=== PATIENT | male | born 1980 | race Caucasian/White ===

== ENCOUNTER 2023-03-21 14:00 | Inpatient (IN) | payer OTHER ==
[2023-03-21] VITALS (7 sets, daily range): BP systolic 134–190
[~2023-03-21] VITALS: Ht 167.6 cm; Wt 144.7 kg
--- NOTE | 2023-03-21 14:03 | NUR ---
Placed in room 01 . Placed on cafeteria monitor, blood pressure machine and pulse oximeter. To gown for exam. Side rails up.
--- NOTE | 2023-03-21 14:03 | NUR ---
PT RECEIVED, CARE ASSUMED. PT BIB EMS FROM HOME FOR EVALUATION OF AMS, HYPOXIA. PLACED PT ON BED 1, CONNECTED TO TELE MONITOR: SR 89, ASSESSMENT DONE: NOTED: GENERAL WEAKNESS TO ALL EXTREMITIES. NO UNILATERAL WEAKNESS NOTED. PT ABLE TO ANSWER BASIC QUESTIONS. MD AT BED SIDE. WILL CONTINUE TO MONITOR
--- NOTE | 2023-03-21 14:03 | NUR ---
1400: Dr Cheney evaluating patient at bedside
--- NOTE | 2023-03-21 14:03 | NUR ---
Pt off the unit for CT
[2023-03-21 14:53] LABS: BILIRUBIN,URINE NEGATIVE (NEGATIVE); BLOOD, URINE 1+ (NEGATIVE); CLARITY/URINE CLEAR (CLEAR); COLOR,URINE YELLOW (YELLOW); GLUCOSE,URINE 1+ (NEGATIVE); KETONES,URINE NEGATIVE (NEGATIVE); LEUKOCYTE ESTERASE ,URINE NEGATIVE (NEGATIVE); NITRITE, URINE NEGATIVE (NEGATIVE); PROTEIN URINE 3+ (NEGATIVE); UROBILINOGEN,URINE 0.2 (0.2-1.0)
[2023-03-21 14:59] LABS: BACTERIA,URINE FEW /HPF (None Seen); MUCUS,URINE None Seen /LPF (None Seen); RBC,URINE 0-3 /HPF (0-3); WBC,URINE 0-3 /HPF (0-3)
[2023-03-21 15:00] LABS: BARBITURATE, URINE NEGATIVE (NEG <=200); BENZODIAZEPINE, URINE NEGATIVE (NEG <=150); CANNABINOID, URINE NEGATIVE (NEG <=50); COCAINE, URINE NEGATIVE (NEG <=150); METHAMPHETAMINES SCREEN,URINE NEGATIVE (NEG <=500); OPIATE, URINE NEGATIVE (NEG <=100); PHENCYCLIDINE SCREEN,URINE NEGATIVE (NEG <=25); UR TRICYCLIC ANTIDEPRESSANTS NEGATIVE (NEG <=300); URINE AMPHETAMINE NEGATIVE (NEG <=500); URINE METHADONE NEGATIVE (NEG <=200); URINE OXYCODONE SCREEN NEGATIVE (NEG <=100); URINE PROPOXYPHENE SCREEN NEGATIVE (NEG <=300)
[2023-03-21 15:10] LABS: MEAN CORPUSCULAR HEMOGLOBIN 32 pg (27-31); MEAN CORPUSCULAR HGB CONC 34 % (32-36); MEAN CORPUSCULAR VOLUME 95 fL (79.0-98.0); PLATELET COUNT (AUTO) 433 K/uL (130-430); RED CELL DISTRIBUTION WIDTH 15.1 % (9.0-15.0); WHITE BLOOD COUNT (AUTO) 10.5 K/uL (4.8-10.8)
[2023-03-21 15:16] LABS: INR 1.1 (0.80-1.20); PROTHROMBIN TIME 11.7 SECS (9.5-12.5)
[2023-03-21 15:24] LABS: HEMATOCRIT 11.4 % (36-54); HEMOGLOBIN 3.9 g/dL (14.0-18.0)
[2023-03-21 15:30] LABS: BAND % (MANUAL) 2 % (0-6); BASOPHILS % (MANUAL) 0 % (0-2); EOSINOPHILS % (MANUAL) 1 % (0-7); LYMPHOCYTES % (MANUAL) 8 % (20-46); MONOCYTES % (MANUAL) 2 % (0-11); MYELOCYTES % 1 % (0-0)
--- NOTE | 2023-03-21 15:30 | NUR ---
ABNORMAL LAB RESULTS CAME IN FROM LAB: HGB 3.9. NO SIGNS OF BLEEDING AT THIS TIME, DR HOBBS AWARE. 4 UNITS OF PRBC ORDERED.
[2023-03-21 15:31] LABS: ALANINE AMINOTRANSFERASE 1371 U/L (12-78); ALBUMIN 2.6 g/dL (3.4-4.8); ANION GAP 17 (5-15); ASPARTATE AMINOTRANSFERASE 542 U/L (10-37); C-REACTIVE PROTEIN QUANT 6.4 mg/dL (0-0.5); CALCIUM 8.2 mg/dL (8.4-11.0); CHLORIDE 92 mmol/L (98-107); GFR AFRICAN AMERICAN 6 mL/min (>90); GLUCOSE 115 mg/dL (70-99); TOTAL BILIRUBIN 0.3 mg/dL (0.0-1.0)
[2023-03-21 15:32] LABS: ACETAMINOPHEN < 1 ug/mL (1-30); ALCOHOL, BLOOD < 3 mg/dL (<10)
[2023-03-21 15:33] LABS: CREATININE 11.52 mg/dL (0.55-1.30); UREA NITROGEN, BLOOD 130 mg/dL (8-21)
[2023-03-21] MEDS ORDERED: DEXTROSE 50% JECT 50 ML DISP.SYRIN IVP ONE (15:45)
[2023-03-21] MEDS ORDERED: INSULIN REGULAR, HUMAN 10 UNITS/0.1 ML, 3 ML VIAL IVP ONE (15:45)
[2023-03-21] MEDS ORDERED: SODIUM POLYSTYRENE SULFONATE 15 GM/60 ML UDBTL PO ONE (15:45)
[2023-03-21 16:03] LABS: ACETONE, SERUM NEGATIVE (NEGATIVE)
--- NOTE | 2023-03-21 16:29 | NUR ---
BLOOD CONSENT SIGNED BY SISTER AND TRANSFUSION FORMS SENT TO LAB
[2023-03-21] MEDS ORDERED: NIFE-34 PO (17:45)
[2023-03-21] MEDS ORDERED: CARV25TA55 PO (17:45)
[2023-03-21] MEDS ORDERED: FURO80TA3 PO (17:45)
[2023-03-21] MEDS ORDERED: CALC0.253 PO (17:45)
[2023-03-21] MEDS ORDERED: CINA60TA2 PO (17:45)
[2023-03-21] MEDS ORDERED: LOSA100T23 PO (17:45)
[2023-03-21] MEDS ORDERED: FERR210T PO (17:45)
[2023-03-21] MEDS ORDERED: FOLI0.8T2 PO (17:47)
[2023-03-21] MEDS ORDERED: SUCR500T PO (17:47)
--- NOTE | 2023-03-21 17:47 | NUR ---
Admit bed requested Patient will be admitted to care of . Admitted to ICU unit. Diagnosis ALTERED MENTAL STATUS/ANEMIA/ RENAL FAILURE Inpatient (Yes or No) Y Observation (Yes or No) N Orientation concerns or request close to nursing station (Yes or No) N Covid Status N On vent or bipap N Isolation requirements N Needs a sitter N From Home (Yes or if No enter name of facility) Y Requires Dialysis (Yes or No) Y Med Rec Completed (Yes of No) Y
--- NOTE | 2023-03-21 18:20 | NUR ---
PT STABLE,PICKED UP PRBC UNIT 1. PER ACADEMIC AFFAIRS SPECIALIST, TAKE PT TO ICU. PT TAKEN TO ICU 2. REPORT GIVEN TO SONIA ALCOCER.
--- NOTE | 2023-03-21 18:22 | NUR ---
ENDORSED PRBC UNIT 1 TO [facility].
--- NOTE | 2023-03-21 18:30 | NUR ---
Received pt to ICU bed 6 from ED. Report received from Gio SCOTT. Pt alert and mumbles answers. SR on monitor. BP 148/78, RR 33 and 02 sat 100% on 10L NRM. Upon arrival without 02 on, 02 sats were in the 80's, so NRM applied. Pt has a right chest HD cath and a peritoneal dialysis cath to abd.
--- NOTE | 2023-03-21 18:38 | NUR ---
First unit of packed cells started to left AC IV site. Unit verifed with Eloina SCOTT.
--- NOTE | 2023-03-21 18:50 | NUR ---
Family in to see pt.
--- NOTE | 2023-03-21 19:15 | NUR ---
Rerport given to Taylor SCOTT.Blood infusing without difficulty.
--- NOTE | 2023-03-21 19:30 | NUR ---
RECEIVED PATIENT SLEEPING, AROUSABLE. FAMILY IN THE ROOM. PATIENT IS BREATHING EASILY. ON NRM , SAT 100%. MANAGER STRATEGIC DEVELOPMENT IS SHOWING NSR, DENIES CHEST PAIN. IST UNIT OF BLOOD TYPE A POSITIVE IS INFUSING ON . PATIENT IS AFEBRILE.
--- NOTE | 2023-03-21 20:31 | NUR ---
CONSULTATION PAGED/CALLED Reason for Consultation: Altered Mental Status Person Who was Notified: Pager, message left to return call Consulting Physician: Dr Harrington Poultice Machine Operator Specialty: Neuro Ordering Physician: Dr Dumont
--- NOTE | 2023-03-21 20:34 | NUR ---
CONSULTATION PAGED/CALLED Reason for Consultation: Anemia Person Who was Notified: Maryjo Bezn Consulting Physician: Dr Wilson Construction Controller Specialty: Hematology Ordering Physician: Dr Dumont
--- NOTE | 2023-03-21 20:39 | NUR ---
CONSULTATION PAGED/CALLED Reason for Consultation: Critical Care Person Who was Notified: Karel Benz Consulting Physician: Dr Almonte Pile Trimmer Specialty: Crital Care Ordering Physician: Dr Dumont
--- NOTE | 2023-03-21 20:42 | NUR ---
CONSULTATION PAGED/CALLED Reason for Consultation: Anemia Person Who was Notified: Siena Benz Consulting Physician: Dr Lopez Game Farm Helper Specialty: GI Ordering Physician: Dr Dumont CONSULTATION PAGED/CALLED Reason for Consultation: Renal Failure Person Who was Notified: Siena Benz Consulting Physician: Nephrology Game Farm Helper Specialty: Dr Lowery Ordering Physician: Dr Dumont
[2023-03-21] MEDS ORDERED: VANCOMYCIN HCL 1000 MG/VIAL IV ONE (22:16)
[2023-03-21] MEDS ORDERED: PIPERACILLIN/TAZOBACTAM 2.25 GM VIAL IV ONE (22:17)
[2023-03-21] MEDS ORDERED: VANCOMYCIN HCL 500 MG/VIAL IV ONE (22:17)
[2023-03-21] MEDS ORDERED: MORPHINE 2 MG/ML INJ. SYRINGE IVP PRN (23:15)
[2023-03-21] MEDS ORDERED: LORazepam 2 MG/ML VIAL IVP PRN (23:15)
[2023-03-21] MEDS ORDERED: NALOXONE HCL 0.4 MG/ML AMP (NARCAN) IVP PRN (23:15)
[2023-03-21] MEDS ORDERED: HYDROmorphone 2 MG/ML VIAL IVP PRN (23:15)
[2023-03-21] MEDS ORDERED: ONDANSETRON HCL 4 MG/2 ML VIAL IVP PRN (23:15)
[2023-03-22] VITALS (24 sets, daily range): BP systolic 122–190
[2023-03-22] MEDS ORDERED: VANCOMYCIN HCL 1,500 MG in NS 250 ML IV ONE ×2
[2023-03-22] MEDS: PIPERACILLIN/TAZO 2.25G/DEX-IS 50 ML IV SCH ×5 (01:08→21:21)
[2023-03-22] MEDS: D5/0.45 NS 1,000 ML IV SCH ×2 (01:22→19:15)
--- NOTE | 2023-03-22 03:22 | NUR ---
CONSULTATION PAGED/CALLED Reason for Consultation: Sepsis Person Who was Notified: Ren Benz Consulting Physician: Dr Ely Hand Tube Bender Specialty: ID Ordering Physician: Dr Dumont Face sheet Faxed :
[2023-03-22 05:50] LABS: BASOPHILS % (AUTO) 0.2 % (0.0-2.0); EOSINOPHILS # (AUTO) 0.1 K/uL (0.0-0.4); EOSINOPHILS % (AUTO) 0.7 % (0.0-4.0); LYMPHOCYTES # (AUTO) 0.9 K/uL (1.0-5.5); LYMPHOCYTES % (AUTO) 8.2 % (20.5-51.5); MEAN CORPUSCULAR HEMOGLOBIN 32 pg (27-31); MEAN CORPUSCULAR HGB CONC 34 % (32-36); MEAN CORPUSCULAR VOLUME 95 fL (79.0-98.0); MONOCYTES # (AUTO) 0.7 K/uL (0.0-1.0); MONOCYTES % (AUTO) 7.1 % (1.7-9.3); NEUTROPHILS # (AUTO) 8.8 K/uL (1.8-7.7); NEUTROPHILS % (AUTO) 83.8 % (40.0-70.0); PLATELET COUNT (AUTO) 390 K/uL (130-430); RED CELL DISTRIBUTION WIDTH 14.9 % (9.0-15.0); WHITE BLOOD COUNT (AUTO) 10.5 K/uL (4.8-10.8)
[2023-03-22 05:59] LABS: CALCIUM 8.6 mg/dL (8.4-11.0); PHOSPHORUS 11.2 mg/dL (2.7-4.5)
--- NOTE | 2023-03-22 06:00 | NUR ---
RECEIVED CALL FROM LAB, H/HGB RESULTS OF 5.1/15.2. PATIENT HAS NOT VOIDED ALL NIGHT LONG , BNP ON ADM WAS 210, WILL SUGGEST TO MD TO GIVE THE REST OF THE BLOOD WITH HEMODIALYSIS TO AVOID FLUID OVERLOAD.
[2023-03-22 06:14] LABS: CREATININE 12.42 mg/dL (0.55-1.30)
[2023-03-22 06:17] LABS: HEMATOCRIT 15.2 % (36-54); HEMOGLOBIN 5.1 g/dL (14.0-18.0)
--- NOTE | 2023-03-22 06:35 | NUR ---
SISTER UPDATED ON PATIENT'S CONDITION.
--- NOTE | 2023-03-22 07:30 | NUR ---
RECEIVED REPORT FROM RN PT RESTING IN BED, ON VENTURI MASK WITH FIO2 AT 100%, O2 SAT AT 100%. PT BP WAS 1160S-170S/80S-90S OVER NIGHT, SIMILAR BP CURRENTLY. PT HAS R CHEST PERMACATH AND PERITONEAL DIALYSIS SHUNT. IV FLUIDS CURRENTLY RUNNING ARE D5 0.45 NS AT 10 ML/HR DUE TO POTENTIAL FVO. PLAN IS FOR POSSIBLE DIALYSIS LATER ON IN THE DAY.
[2023-03-22] MEDS: PANTOPRAZOLE SODIUM 40 MG/VIAL (PROTONIX) IVP SCH (09:03)
--- NOTE | 2023-03-22 09:45 | NUR ---
RT NOTES Pt is undergoing dialysis. confirmed with SONIA Dixon, ABG is to be drawn after dialysis.
[2023-03-22] MEDS: FOLIC ACID 1 MG TABLET PO SCH (12:00)
[2023-03-22] MEDS ORDERED: HEPARIN SODIUM,PORCINE 5,000 UNITS/ML VIAL MC ONE (12:30)
--- NOTE | 2023-03-22 12:30 | NUR ---
HIGH ALERT NOTE: Called Dr. Debra FARLEY back at [phone], identified within the medical roster to verify physician authenticity. REGARDING ORDER FOR HEPARIN FOR POST DIALYSIS PERMACATH PORT FLUSH.
[2023-03-22] MEDS ORDERED: HEPARIN SODIUM,PORCINE 5,000 UNITS/ML VIAL ONE (12:33)
[2023-03-22 19:36] LABS: BF APPEARANCE UNSPUN CLEAR (CLEAR); BODY FLUID COLOR COLORLESS (LT YELLOW); BODY FLUID TOTAL VOLUME 45 mL; NEUTROPHIL, BODY FLUID 41 %; RBC, BODY FLUID 0 /uL; SOURCE/TYPE ,BODY FLUID PERITONEAL; WBC, BODY FLUID 9 /uL
[2023-03-22 19:37] LABS: LYMPHOCYTES, BODY FLUID 59 %
[2023-03-22] MEDS ORDERED: EPOETIN ALFA 10,000 UNITS/ML VIAL SUBCUT SCH (20:15)
[2023-03-23] VITALS (22 sets, daily range): BP systolic 127–189
[2023-03-23] MEDS: ACETAMINOPHEN 325 MG TABLET PO PRN ×4 (02:08→22:25)
[2023-03-23] MEDS: PIPERACILLIN/TAZO 2.25G/DEX-IS 50 ML IV SCH ×4 (03:36→22:25)
[2023-03-23 06:05] LABS: BASOPHILS % (AUTO) 0.2 % (0.0-2.0); EOSINOPHILS # (AUTO) 0.4 K/uL (0.0-0.4); EOSINOPHILS % (AUTO) 3.1 % (0.0-4.0); LYMPHOCYTES % (AUTO) 8.5 % (20.5-51.5); MEAN CORPUSCULAR HEMOGLOBIN 32 pg (27-31); MEAN CORPUSCULAR HGB CONC 34 % (32-36); MEAN CORPUSCULAR VOLUME 95 fL (79.0-98.0); MONOCYTES # (AUTO) 0.9 K/uL (0.0-1.0); MONOCYTES % (AUTO) 7.8 % (1.7-9.3); NEUTROPHILS # (AUTO) 9.4 K/uL (1.8-7.7); NEUTROPHILS % (AUTO) 80.4 % (40.0-70.0); PLATELET COUNT (AUTO) 398 K/uL (130-430); RED CELL DISTRIBUTION WIDTH 14.4 % (9.0-15.0); RETICULOCYTE COUNT 4.7 % (0.5-1.5); WHITE BLOOD COUNT (AUTO) 11.7 K/uL (4.8-10.8)
[2023-03-23 06:13] LABS: INR 1.1 (0.80-1.20); PROTHROMBIN TIME 11.5 SECS (9.5-12.5)
[2023-03-23 06:21] LABS: RED BLOOD CELL COUNT(AUTO) 1.92 MIL/uL (4.2-6.2)
[2023-03-23 06:23] LABS: ALBUMIN 2.1 g/dL (3.4-4.8); BILIRUBIN,DIRECT 0.1 mg/dL (0.0-0.3); CALCIUM 8.5 mg/dL (8.4-11.0); HEMATOCRIT 18.3 % (36-54); HEMOGLOBIN 6.1 g/dL (14.0-18.0); PHOSPHORUS 9.1 mg/dL (2.7-4.5); TOTAL BILIRUBIN 0.4 mg/dL (0.0-1.0)
[2023-03-23 06:40] LABS: CREATININE 11.35 mg/dL (0.55-1.30)
[2023-03-23] MEDS: IPRATROPIUM BROM 0.5 MG/2.5 ML VIAL.NEB (ATROVENT) INH SCH ×3 (07:37→20:10)
[2023-03-23] MEDS: ALBUTEROL SULFATE 0.083% 2.5 MG/3 ML VIAL.NEB INH SCH ×3 (07:37→20:09)
--- NOTE | 2023-03-23 07:40 | NUR ---
Received report from RN. Pt now has 22 gauge catheter in the hand - no reports of high pressure alarms with new catheter. IV fluids remain unchanged, Hi-Flow settings remain unchanged, patient had two bowel movements overnight - Stool sample sent to lab, Fecal Occult Blood test positive. Hgb @ 6.1 and Hct @ 18.3, Dr. Jackson called at 0630, orders received at 0730 for 2 units PRBC to be transfused during dialysis. Patient has a new condom catheter in place from nightshift. Patient is now on cardiac diet.
[2023-03-23] MEDS: FOLIC ACID 1 MG TABLET PO SCH (08:16)
[2023-03-23] MEDS: PANTOPRAZOLE SODIUM 40 MG/VIAL (PROTONIX) IVP SCH (08:16)
[2023-03-23 08:18] LABS: TOTAL IRON BIND. CAPACITY 248 ug/dL (250-450)
[2023-03-23] MEDS ORDERED: EPOETIN ALFA 10,000 UNITS/ML VIAL SUBCUT ONE (09:00)
--- NOTE | 2023-03-23 10:27 | NUR ---
Dietitian Recommendations * Ordered Renal diet * Suggest daily renal multivitamin with minerals for micronutrient coverage * RD to give nutrition education on next visit GS, MPH, RD Please refer to RD Assessment for further details. Thanks! Addendum: 03/23/23 at [address] Amended: Links added.
[2023-03-23] MEDS: D5/0.45 NS 1,000 ML IV SCH (15:15)
--- NOTE | 2023-03-23 18:00 | NUR ---
Dialysis and 2 unit PRBC transfusion complete. Patient has had temperature in the 100 to 100.4 range over course of day, tylenol given to lower temperature. During dialysis patients temperature reached 101, held off on tylenol admn until dialysis completed. Net output 3L from dialysis.
[2023-03-23 19:58] LABS: BASOPHILS % (AUTO) 0.2 % (0.0-2.0); EOSINOPHILS # (AUTO) 0.3 K/uL (0.0-0.4); EOSINOPHILS % (AUTO) 1.7 % (0.0-4.0); HEMATOCRIT 23.3 % (36-54); LYMPHOCYTES # (AUTO) 0.4 K/uL (1.0-5.5); LYMPHOCYTES % (AUTO) 2.6 % (20.5-51.5); MEAN CORPUSCULAR HEMOGLOBIN 31 pg (27-31); MEAN CORPUSCULAR HGB CONC 34 % (32-36); MONOCYTES # (AUTO) 0.5 K/uL (0.0-1.0); MONOCYTES % (AUTO) 3.1 % (1.7-9.3); NEUTROPHILS # (AUTO) 14.2 K/uL (1.8-7.7); NEUTROPHILS % (AUTO) 92.4 % (40.0-70.0); PLATELET COUNT (AUTO) 363 K/uL (130-430); RED BLOOD CELL COUNT(AUTO) 2.55 MIL/uL (4.2-6.2); RED CELL DISTRIBUTION WIDTH 16.5 % (9.0-15.0); WHITE BLOOD COUNT (AUTO) 15.4 K/uL (4.8-10.8)
[2023-03-23 19:59] LABS: MEAN CORPUSCULAR VOLUME 92 fL (79.0-98.0)
--- NOTE | 2023-03-23 20:30 | NUR ---
Transferred patient to [address] A. Gave report to government service executive Fernando, all questions was answered. Patient's vital signs blood pressure 155/76, heart rate 98, respirations 20, SPO2 100%. HFNC 20L FIO2 40%. L hand 22g IV intact, D5NS @ 50 mL/hr running. Patient had dialysis earlier 3L out. All belongings are given to the patient.
--- NOTE | 2023-03-23 20:30 | NUR ---
pt.transfer to [email or web address]asya;rn provided pt's report/data.pt.presents o2-therapy:high-flow settings;20l/min/30%fio2%.pt.presents hemo-dialysis hx.peritoneal h/d cath present location abdomen;llq.rasta cath:location rt.svc.v/s assessed values note temp status elevated.cooling measures initiated p/t transfer per asya;brent.loc:pt.alert x4.call light/telephone presented/placed w/in access of the pt.
--- NOTE | 2023-03-23 21:00 | NUR ---
2100p medications administered.tylenol:650 mg 2/t temp.cooling measures attended to.
--- NOTE | 2023-03-23 22:00 | NUR ---
pt.assessed.pt.provided bsc.pt.assisted to bsc.pt.cleaned pt.returned to bed.no c/o pain,nausea.02-sat%=96% pt.repositioned.call light/telephone place w/in access of the pt.
[2023-03-24] VITALS: BP_SYST 145
--- NOTE | 2023-03-24 | NUR ---
pt.assessed.v/s assessed values note temp remains elevated.ice packs applied.x4.no c/o pain,nausea.no requests posited@this hour.pt.repositioned.call light/telephone placed w/in access of the pt.
--- NOTE | 2023-03-24 01:00 | NUR ---
noted ;semiconductor lab technician ordered hemo-dialysis in am:03/24/23.order printed presented to chente;[employer].
[2023-03-24] MEDS: ALBUTEROL SULFATE 0.083% 2.5 MG/3 ML VIAL.NEB INH SCH ×5 (02:37→23:57)
[2023-03-24] MEDS: IPRATROPIUM BROM 0.5 MG/2.5 ML VIAL.NEB (ATROVENT) INH SCH ×6 (02:37→23:57)
--- NOTE | 2023-03-24 03:00 | NUR ---
temp assessed note value:101.3.tylenol;650mg po administered cooling measures attended to.
[2023-03-24] MEDS: ACETAMINOPHEN 325 MG TABLET PO PRN ×2 (03:09→20:55)
[2023-03-24 04:00] VITALS: BP_SYST 140
--- NOTE | 2023-03-24 04:00 | NUR ---
pt.assessed.temp assessed temp remains elevated.continue w cooling measures.no c/o pain,nausea.no requests posited@ this hour.pt.,repositioned.call light/telephone placed w/in access of the pt.
[2023-03-24] MEDS: PIPERACILLIN/TAZO 2.25G/DEX-IS 50 ML IV SCH ×4 (04:39→21:11)
[2023-03-24 05:58] LABS: BASOPHILS % (AUTO) 0.2 % (0.0-2.0); EOSINOPHILS # (AUTO) 0.3 K/uL (0.0-0.4); EOSINOPHILS % (AUTO) 1.7 % (0.0-4.0); HEMATOCRIT 24.1 % (36-54); LYMPHOCYTES # (AUTO) 0.8 K/uL (1.0-5.5); LYMPHOCYTES % (AUTO) 4.7 % (20.5-51.5); MEAN CORPUSCULAR HEMOGLOBIN 31 pg (27-31); MEAN CORPUSCULAR HGB CONC 33 % (32-36); MEAN CORPUSCULAR VOLUME 93 fL (79.0-98.0); MONOCYTES # (AUTO) 0.5 K/uL (0.0-1.0); MONOCYTES % (AUTO) 3.1 % (1.7-9.3); NEUTROPHILS # (AUTO) 14.8 K/uL (1.8-7.7); NEUTROPHILS % (AUTO) 90.3 % (40.0-70.0); PLATELET COUNT (AUTO) 375 K/uL (130-430); RED BLOOD CELL COUNT(AUTO) 2.59 MIL/uL (4.2-6.2); WHITE BLOOD COUNT (AUTO) 16.4 K/uL (4.8-10.8)
--- NOTE | 2023-03-24 06:00 | NUR ---
pt.assessed.pt.quiescent.no c/o pain,nausea.no requests posited@this hour.pt.weighed 2/t hemo-dialysis hx.pt.repositioned. urinal/bsc wnl access of the pt.call light/telephone placed w/in access of the pt.
[2023-03-24 06:29] LABS: ALBUMIN 1.8 g/dL (3.4-4.8); C-REACTIVE PROTEIN QUANT 28.1 mg/dL (0-0.5); CALCIUM 8.1 mg/dL (8.4-11.0); PHOSPHORUS 7.2 mg/dL (2.7-4.5); TOTAL BILIRUBIN 0.4 mg/dL (0.0-1.0); VANCOMYCIN,RANDOM 10.7 ug/mL
[2023-03-24 07:11] LABS: ERYTHROCYTE SEDIMENTATION RATE 54 MM/HR (0-15)
[2023-03-24 07:28] LABS: CREATININE 9.88 mg/dL (0.55-1.30)
--- NOTE | 2023-03-24 07:42 | NUR ---
RT NOTES 0742 TITRATED O2 TO 6L OXYMIZER, HIFLOW ON STBY, PT LORRAINE WELL, PT SATURATING 100%. NO DISTRESS NOTED. WILL RN MADE AWARE.
[2023-03-24 07:53] VITALS: BP_SYST 148
[2023-03-24 08:07] LABS: FOLATE (FOLIC ACID) 9.7 ng/mL (>3.0)
[2023-03-24 09:06] LABS: FERRITIN 6444 ng/mL (30-400)
[2023-03-24] MEDS: FOLIC ACID 1 MG TABLET PO SCH (09:47)
[2023-03-24] MEDS: PANTOPRAZOLE SODIUM 40 MG/VIAL (PROTONIX) IVP SCH (09:47)
--- NOTE | 2023-03-24 09:58 | NUR ---
RT NOTES 0958 PT ON DIALYSIS, WILL GET ABG POST DIALYSIS. PT TITRATED TO 3L OXYMIZER, SATURATING 100%. NO RESP DISTRESS NOTED. WILL NOTIFIED RN.
[2023-03-24 10:07] LABS: ANTI NUCLEAR AB WITH REFLEX Negative (Negative)
--- NOTE | 2023-03-24 11:04 | NUR ---
CM met with patient and his sister at bedside. updated on POC. stabilization then transfer to [place]. Patient currently on 6L oxymizer. Spoke with Alka at [facility] [phone]. TRAVIS Gonzalez will call this CM back to discuss patient current condition
--- NOTE | 2023-03-24 11:28 | NUR ---
TRAVIS spoke with [facility] Lisa [phone]. Updated info on Hb 8.0, temp 100-101, blood and body fluid cultures (-), and oxygenation status given 6L oxymizer. Lisa informs that they are ok to transfer patient to [place] facility. Lisa advised to reach out to patient attending for transfer order.
[2023-03-24] MEDS: D5/0.45 NS 1,000 ML IV SCH (11:56)
[2023-03-24] MEDS ORDERED: VANCOMYCIN HCL 1,500 MG in NS 250 ML IV ONE (12:00)
[2023-03-24] MEDS ORDERED: HEPARIN SODIUM,PORCINE 5,000 UNITS/ML VIAL ONE (12:21)
--- NOTE | 2023-03-24 12:45 | NUR ---
Order received ok to transfer to [facility] when bed available. Level of care: telemetry. TRAVIS notified Lisa ROBLES at [facility]. updated information faxed to [phone]. Lisa will be planning for transfer to [facility]. will let SONIA Muse know. Will update sister.
--- NOTE | 2023-03-24 13:23 | NUR ---
Lisa Almanza given update. She says she does not have a bed at [facility] at this time.
[2023-03-24 13:49] VITALS: BP_SYST 157
--- NOTE | 2023-03-24 16:15 | NUR ---
Letter provided to the patient at bedside for his employer.
[2023-03-24 17:49] VITALS: BP_SYST 166
[2023-03-24] MEDS ORDERED: LOSARTAN POTASSIUM 50 MG TABLET (COZAAR) PO ONE (21:15)
[2023-03-24] MEDS ORDERED: CARVEDILOL 25 MG TABLET (COREG) PO ONE (21:15)
[2023-03-24] MEDS ORDERED: NIFEdipine 30 MG TAB.ER.24 PO ONE (21:30)
[2023-03-25 03:07] LABS: HEPATITIS A AB, IgM Negative (Negative); HEPATITIS B CORE AB, IgM Negative (Negative); HEPATITIS B SURFACE AG Negative (Negative)
[2023-03-25] MEDS ORDERED: LOSARTAN POTASSIUM 50 MG TABLET (COZAAR) PO SCH (09:00)
[2023-03-25] MEDS ORDERED: CARVEDILOL 25 MG TABLET (COREG) PO SCH (09:00)
[2023-03-25] MEDS ORDERED: NIFEdipine 30 MG TAB.ER.24 PO SCH (09:00)
[2023-03-25 10:06] LABS: ANTI-SMOOTH MUSCLE AB 5 Units (0-19)
[2023-03-25 12:06] LABS: LDH,BODY FLUID 13 IU/L (.)
[2023-03-25] MEDS ORDERED: EPOETIN ALFA 10,000 UNITS/ML VIAL SUBCUT SCH (17:00)
[2023-03-25 22:51] LABS: BODY FLUID GLUCOSE 1293 mg/dL; BODY FLUID TOTAL PROTEIN 0.3 g/dL
== END 2023-03-25 00:10 | disposition short-term general hospital (02) | DRG 871 ==
LOC: SED 14:00 → SIC 16:57 → STU 03-23 20:25 → SMU 03-24 08:55 → STU 03-24 11:39
PROVIDERS: ADMIT Preventive Medicine Preventive Medicine/Occupational Environmental Medicine; ATTEND Preventive Medicine Preventive Medicine/Occupational Environmental Medicine
PROC: 30233N1 Transfusion of Nonautologous Red Blood Cells into Peripheral Vein, Percutaneous Approach (ICD-10-PCS; principal; 2023-03-22)
PROC: 5A1D70Z Performance of Urinary Filtration, Intermittent, Less than 6 Hours Per Day (ICD-10-PCS; 2023-03-22)
PROC: 5A0935A Assistance with Respiratory Ventilation, Less than 24 Consecutive Hours, High Flow/Velocity Cannula (ICD-10-PCS; 2023-03-22)
PROC: 5A1D70Z Performance of Urinary Filtration, Intermittent, Less than 6 Hours Per Day (ICD-10-PCS; 2023-03-23)
PROC: 5A0935A Assistance with Respiratory Ventilation, Less than 24 Consecutive Hours, High Flow/Velocity Cannula (ICD-10-PCS; 2023-03-23)
PROC: 5A1D70Z Performance of Urinary Filtration, Intermittent, Less than 6 Hours Per Day (ICD-10-PCS; 2023-03-24)
DX: A41.9 Sepsis, unspecified organism (principal); E43 Unspecified severe protein-calorie malnutrition; J96.01 Acute respiratory failure with hypoxia; G93.41 Metabolic encephalopathy; N18.6 End stage renal disease; E87.1 Hypo-osmolality and hyponatremia; N17.9 Acute kidney failure, unspecified; Z68.43 Body mass index [BMI] 50.0-59.9, adult; B17.9 Acute viral hepatitis, unspecified; K92.2 Gastrointestinal hemorrhage, unspecified; I12.0 Hypertensive chronic kidney disease with stage 5 chronic kidney disease or end stage renal disease; E78.5 Hyperlipidemia, unspecified; E83.52 Hypercalcemia; E83.39 Other disorders of phosphorus metabolism; E88.09 Other disorders of plasma-protein metabolism, not elsewhere classified; D75.839 Thrombocytosis, unspecified; E87.5 Hyperkalemia; K76.0 Fatty (change of) liver, not elsewhere classified; E83.51 Hypocalcemia; R74.01 Elevation of levels of liver transaminase levels; G47.33 Obstructive sleep apnea (adult) (pediatric); R29.810 Facial weakness; E66.9 Obesity, unspecified; D64.9 Anemia, unspecified; Z99.2 Dependence on renal dialysis
CPT/HCPCS: 36415; 36600; 70450-TC; 71045; 76376; 76700-TC; 80048; 80053; 80074; 80076; 80202; 80307; 81000; 82009; 82042; 82140; 82272; 82550; 82607; 82728; 82746; 82803; 82947; 83010; 83516; 83540; 83550; 83605; 83615; 83735; 83880; 84100; 84157; 84484; 85007; 85025; 85027; 85044; 85610-TC; 85651-TC; 85730-TC; 86038; 86140; 86886; 86900; 86901; 86920; 87040; 87070-TC; 89051-TC; 89060-TC; 90937; 93005; 93306; 94010; 94640; 94760; 96374; 96375; 99285; C9113; G0378; G0480; G0481; G0482; J0885; J1644; J1815; J2543; J3370; J7030; J7040; J7050; J7613; P9021